=== PATIENT | female | born 1975 | race Two or more races ===

== ENCOUNTER 2016-07-11 12:10 | Observation (INO) | payer MEDICAID | END 2016-07-11 13:50 | disposition home or self-care (01) | DRG 566 | LOC: LDRP 12:10 | PROVIDERS: ADMIT Specialist; ATTEND Specialist | DX: O48.0 Post-term pregnancy (principal); Z3A.40 40 weeks gestation of pregnancy | CPT/HCPCS: 59025; 76818; 81002; G0378 ==

== ENCOUNTER 2016-07-14 10:05 | Observation (INO) | payer MEDICAID | END 2016-07-14 11:22 | disposition home or self-care (01) | DRG 566 | LOC: TELE 10:05 → LDRP 10:16 | PROVIDERS: ADMIT Specialist; ATTEND Specialist | DX: O48.0 Post-term pregnancy (principal); Z3A.40 40 weeks gestation of pregnancy | CPT/HCPCS: 59025; 76818; 81002; G0378 ==

== ENCOUNTER 2016-07-16 13:50 | Observation (INO) | payer MEDICAID | END 2016-07-16 15:25 | disposition home or self-care (01) | DRG 566 | LOC: LDRP 13:50 | PROVIDERS: ADMIT Obstetrics & Gynecology; ATTEND Obstetrics & Gynecology | DX: O26.893 Other specified pregnancy related conditions, third trimester (principal); O48.0 Post-term pregnancy; Z3A.40 40 weeks gestation of pregnancy | CPT/HCPCS: 59025; 76818; 81002; G0378 ==

== ENCOUNTER 2016-07-17 09:15 | Inpatient (IN) | payer MEDICAID ==
[~2016-07-17] VITALS: Ht 167.6 cm; Wt 73.0 kg
[2016-07-17] MEDS ORDERED: LACT. RINGERS/OXYTOCIN 20UNITS 1,000 ML IV SCH (09:41)
[2016-07-17] MEDS ORDERED: LACTATED RINGER'S 1,000 ML IV SCH (09:41)
[2016-07-17] MEDS ORDERED: PHISODERM TOP SOLN 240ML BTL TOP PRN (09:45)
[2016-07-17] MEDS ORDERED: NALBUPHINE HCL 10 MG/1ml INJECTION IV PRN (09:45)
[2016-07-17] MEDS ORDERED: PROMETHAZINE HCL 25 MG/ML 1ML IM PRN (09:45)
[2016-07-17] MEDS ORDERED: PROMETHAZINE HCL 25 MG/ML 1ML IV PRN (09:45)
[2016-07-17] MEDS ORDERED: LIDOCAINE 1% HCL (LOCAL ANESTH.) INJ 20ML MDV IJ ONE (09:45)
[2016-07-17] MEDS ORDERED: DERMOPLAST 60ML BOTTLE TOP PRN (09:45)
[2016-07-17] MEDS ORDERED: LIDOCAINE 2%HCL (LOCAL ANESTH.) INJ 20ML MDV IJ ONE ×2 (09:45→12:15)
[2016-07-17 10:12] LABS: Basophils # (auto) 0 uL; Basophils % (auto) 0.3 % (0.0-2.0); Eosinophils # (auto) 0 uL; Eosinophils % (auto) 0.6 % (0.0-7.0); Hematocrit 37.9 % (36.0-46.0); Hemoglobin 12.6 g/dL (12.2-16.2); Lymphocytes # (auto) 1.3 uL; Lymphocytes % (auto) 17.4 % (10.0-50.0); Mean Corpuscular Hgb Conc. 33.3 g/dL (32.0-36.0); Mean Corpuscular Volume 96.1 fL (80.0-100.0); Monocytes # (auto) 0.5 uL; Monocytes % (auto) 6.8 % (0.0-12.0); Neutrophils # (auto) 5.8 uL; Neutrophils % (auto) 74.9 % (37.0-80.0); Platelet Count (auto) 267 10^3/uL (140-450); Red Cell Distribution Width 13.4 % (11.6-16.0); White Blood Cell 7.7 10^3/uL (4.4-10.8)
[2016-07-17 10:15] LABS: Urine Bilirubin Negative (Negative); Urine Blood Negative /uL (Negative); Urine Color Yellow (Yellow); Urine Glucose Normal (Normal); Urine Ketone TRACE (Negative); Urine Mucus FEW (None Seen); Urine Nitrite Negative (Negative); Urine RBC 2 /hpf (0 - 4); Urine Squamous Epithelial Cell FEW /hpf (<5)
[2016-07-17 10:27] LABS: INR 0.91 (0.9-1.15); Partial Thromboplastin Time 26.2 sec (22.64-33.71); Prothrombin Time 9.4 sec (9.37-12.3)
[2016-07-17 10:45] LABS: Albumin 2.4 g/dL (3.4-5.0); BUN/Creatinine Ratio 23.5; Bilirubin, Total 0.3 mg/dL (0.2-1.0); Calcium 8.5 mg/dL (8.5-10.1); Potassium 3.5 mmol/L (3.5-5.1); Total Protein 6.3 g/dL (6.4-8.2)
[2016-07-17] MEDS ORDERED: WITCH HAZEL-GLYCERIN PAD TOP PRN (12:15)
[2016-07-18] MEDS ORDERED: IBUPROFEN 600 MG TAB PO ONE (04:02)
[2016-07-18] MEDS: IBUPROFEN 600 MG TAB PO PRN ×3 (04:10→17:48)
[2016-07-18] MEDS ORDERED: ACETAMINOPHEN 325 MG TAB PO PRN (04:15)
[2016-07-18 06:30] VITALS: BP 97/58
[2016-07-18] MEDS ORDERED: PREN-96 PO (09:45)
[2016-07-18 11:31] VITALS: BP 112/70
[2016-07-18 14:31] VITALS: BP 101/69
[2016-07-18 16:46] VITALS: BP 96/62
[2016-07-18 19:38] VITALS: BP 99/68
[2016-07-18 23:32] VITALS: BP 95/57
[2016-07-19 03:30] VITALS: BP 115/84
[2016-07-19 07:30] VITALS: BP 100/63
== END 2016-07-19 09:45 | disposition home or self-care (01) | DRG 560 ==
LOC: LDRP 09:15
PROVIDERS: ADMIT Specialist; ATTEND Specialist
PROC: 10E0XZZ Delivery of Products of Conception, External Approach (ICD-10-PCS; principal; 2016-07-18)
DX: O48.0 Post-term pregnancy (principal); O09.523 Supervision of elderly multigravida, third trimester; Z37.0 Single live birth; Z3A.41 41 weeks gestation of pregnancy
CPT/HCPCS: 36415; 51702; 59025; 59409; 76818; 80053; 81001; 81002; 85025; 85610; 85730; 86850; 86900; 86901; 96365; 96366; 96374; G0378; J2590